=== PATIENT | male | born 1975 | race Caucasian/White ===

== ENCOUNTER 2016-12-28 14:25 | Emergency (ER) | payer OTHER ==
--- NOTE | 2016-12-28 16:42 | ED NURSING NOTES ---
Clinical Report - Nurses [facility] [address] [place] [address] 12/28/2016 14:30 [id number] Triage time 14:37 Dec 28 2016. Acuity: LEVEL 4. Chief Complaint: INJURY TO LEFT KNEE. LENA COMA SCORE: [place] Coma Scale: 15- eyes open spontaneously (4); best verbal response- oriented x 4 (5); best motor response- obeys commands (6). --14:41 Jeimy Harley R.N. 14:37 12/28/16. BP: 131/79. HR: 66. RR: 18. O2 saturation: 93%. Temp: 98.4 F. Pain level now 11/27. --14:41 Jeimy Harley R.N. Weight: 147.4 kg stated. Height/Length: 79 inches Per Patient. BMI: 36.6. --14:39 Jeimy Harley R.N. Medications Cymbalta Oral. --14:41 Jeimy Harley R.N. Allergies Penicillin. --14:41 Jeimy Harley R.N. History Arrived by private vehicle. Historian: patient. Accompanied by friend. This occurred (1 weeks ago). Occurred at home. ( Was loading unloading a truck stepped down and his knee gave out patient states felt a tear.). He has had numbness, trouble walking and weakness. No tingling, neck pain or back pain. PAST MEDICAL HX: Immunizations: up-to-date. SOCIAL HX: Current every day light tobacco smoker (cigarette)- less than 1/2 a pack per day. No alcohol use or drug use. SELF HARM ASSESSMENT: A self harm assessment was performed. The patient answered "no" to the question "Have you recently felt down, depressed, or hopeless?" and "Do you have thoughts of harming or killing yourself?". FALL RISK ASSESSMENT: Fall risk assessment completed. No fall risk identified. NUTRITIONAL RISK ASSESSMENT: The nutritional risk assessment revealed no deficiencies. FUNCTIONAL ASSESSMENT: Functional assessment: no impairments noted. LEARNING NEEDS ASSESSMENT: The learning needs assessment revealed no barriers. ABUSE ASSESSMENT: Abuse assessment: (yes) The patient was asked "Do you feel safe in your home?". SKIN INTEGRITY ASSESSMENT: Skin integrity risk assessment completed. No skin integrity risk identified. --14:41 Jeimy Harley R.N. PROBLEMS: no known problems. ADDITIONAL SURGERIES: Left ankle surgery . Left knee surgery. --14:42 Jeimy Harley R.N. PHYSICAL ASSESSMENT Ambulatory to room. GENERAL / NEURO / PSYCH: Oriented X 4. Appears in pain. EXTREMITIES: Limited ROM present. Capillary refill is less than 2 seconds in the extremities. Extremity pulses are within normal limits. Pain with weight bearing. Limping gait. Neuro-vascular status intact to the extremity. Left knee: tenderness and swelling. SKIN: Skin intact. Skin is warm and dry. --14:43 Jeimy Harley R.N. NURSING PROGRESS NOTES The initial plan of care for this patient includes an assessment with efforts to address patient positioning, appropriate ambient lighting and comfortable environmental temperature; impairment of the musculoskeletal system. Cold pack applied. Extremity elevated. Patient gowned. Reassurance given. Call light placed in reach. Side rails up x 1. Bed placed in lowest position. Brakes of bed on. --14:43 Jeimy Harley R.N. DISPOSITION / DISCHARGE Departure time: 17:00 Dec 28 2016. Condition at departure: unchanged. No learning barriers present. Discharge instructions provided and reviewed with the patient. Reviewed warnings. Reviewed medication(s). Treatments reviewed. Reviewed referrals. Patient verbalized understanding. Written instructions provided in Telugu. The patient was discharged home and accompanied by charge out clerk. He left the Emergency Department ambulatory and via private vehicle. Drafter Civil driving. --17:06 Jeimy Harley R.N. 17:05 12/28/16. BP: 132/78. HR: 88. RR: 18. O2 saturation: 98%. Temp: 98.4 F. Pain level now 12/28. --17:06 Jeimy Harley R.N. Locked/Released at 12/28/2016 17:06 by Jeimy Harley R.N.
--- NOTE | 2016-12-28 16:42 | ED CLINICAL REPORT ---
Clinical Report - Physicians/Mid Levels [facility] [address] [place] [place] [address] 12/28/2016 14:30 Patient: YOLANDE MCGILL Time Seen: 14:47; upon arrival, initial patient contact, initial documentation, patient care assumed. Arrived- By private vehicle. Historian- patient. HISTORY OF PRESENT ILLNESS Chief Complaint: Injury to left knee. The injury happened about 1 weeks ago. Occurred at home. ( step down and felt knee give, instant pain). Patient is experiencing moderate pain. Patient denies injury to the head or neck. No other injury. REVIEW OF SYSTEMS The patient complains of pain on weight bearing. He has had swelling,, weakness, and numbness. No tingling or skin laceration. All systems otherwise negative, except as recorded above. PAST HISTORY See nurses notes. ( PROBLEMS: no known problems. ADDITIONAL SURGERIES: Left ankle surgery . Left knee surgery. --14:42 Jeimy Harley R.N.). He has had a prior injury to the same area. SOCIAL HISTORY Light tobacco smoker. No alcohol use or drug use. No recent travel. Is a local resident. FAMILY HISTORY No significant family medical history. ADDITIONAL NOTES The nursing notes have been reviewed with agreement regarding the chief complaint, HPI, ROS, PMH and patient medications and allergies. PHYSICAL EXAM Vital Signs: 12/28/2016 14:37 BP: 131/79. HR: 66. RR: 18. O2 saturation: 93%. Temp: 98.4 F. Have been reviewed as normal and appear to be correct. Appearance: Alert. Oriented X3. No acute distress. Head: Head atraumatic. Eyes: Pupils equal, round and reactive to light. Eyes normal inspection. Respiratory: No respiratory distress. Skin: Skin intact. Skin warm and dry. Normal skin color. Normal skin turgor. Extremities: Left knee: moderate tenderness and swelling located in the patella, suprapatellar area and infrapatellar area. Limited ROM secondary to pain (diminished flexion and external and internal rotation). Neurovascular intact distally. No ligamentous laxity present. No joint effusion. No erythema, laceration, abrasion, ecchymosis or puncture wound. No foreign body or deformity. Lower extremity exam otherwise negative. Extremities otherwise negative. Gait: Abnormal gait. Gait not tested due to pain. Neuro, Vascular and Tendons: Vascular status intact. Sensation intact. Motor intact. Tendon function intact. Neuro: Oriented X 3. No motor deficit. No sensory deficit. Note: isolated injury to knee. LABS, X-RAYS, AND EKG X-Rays: X-rays are normal and reveal no acute disease (reviewed by dr hubbard). Left knee negative. The X-rays were independently viewed by me. Lt Knee X-ray: (IMPRESSION: 1. Nonspecific joint effusions suggests acute internal derangement or chronic reactive effusion. 2. Linear periarticular calcifications may be dystrophic, postsurgical (given history), or acute avulsion fractures, specifically of the medial patellar cortex. 3. Consider follow-up MRI. Electronically Final signed by:Haritha Cartwright MD 12/28/2016 5:30:33 PM). The X-rays were discussed with the radiologist. Interpretation time: 17:27. PROGRESS AND PROCEDURES Patient counseled in person regarding the patient's stable condition, test results and diagnosis. Differential Diagnosis: I considered fracture, stress fracture, bone contusion, sprain, hyperextension, dislocation, meniscus tear, anterior cruciate ligament tear, ligament tear, soft tissue injury, soft tissue hematoma, myositis, fasciitis, tendonitis and bursitis as a possible cause of lower extremity pain in this patient. This is a partial list of diagnoses considered. Above considerations are based on history, physical exam, reassessment and X-Ray data. Differential diagnosis was discussed with patient. Disposition: Discharged home in good and improved condition (16:42). Condition: good and stable. CLINICAL IMPRESSION Left knee effusion. No left knee contusion or hemarthrosis. INSTRUCTIONS Wear elastic wrap (Adi wrap) as directed for one weeks until released. Warnings: GENERAL WARNINGS: Return or contact your physician immediately if your condition worsens or changes unexpectedly, if not improving as expected, or if other problems arise. Specifically return if problem worsens. Prescription Medications: Ultram 50 mg tablets: take 1-2 orally every 6 hours as needed for pain. Dispense twenty (20). No refills. Substitution is permissible. Follow-up: Follow up with an orthopedic surgeon in about one week as needed. Call for an appointment. Summary of care provided to patient. Understanding of the discharge instructions verbalized by patient. (Electronically signed by Antoinette Page A.R.N.P. 12/28/2016 17:48)
--- NOTE | 2016-12-28 16:42 | ED NURSING NOTES ---
Clinical Report - Nurses [facility] [address] [place] [address] 12/28/2016 14:30 [id number] Triage time 14:37 Dec 28 2016. Acuity: LEVEL 4. Chief Complaint: INJURY TO LEFT KNEE. LENA COMA SCORE: [place] Coma Scale: 15- eyes open spontaneously (4); best verbal response- oriented x 4 (5); best motor response- obeys commands (6). --14:41 Jeimy Harley R.N. 14:37 12/28/16. BP: 131/79. HR: 66. RR: 18. O2 saturation: 93%. Temp: 98.4 F. Pain level now 11/27. --14:41 Jeimy Harley R.N. Weight: 147.4 kg stated. Height/Length: 79 inches Per Patient. BMI: 36.6. --14:39 Jeimy Harley R.N. Medications Cymbalta Oral. --14:41 Jeimy Harley R.N. Allergies Penicillin. --14:41 Jeimy Harley R.N. History Arrived by private vehicle. Historian: patient. Accompanied by friend. This occurred (1 weeks ago). Occurred at home. ( Was loading unloading a truck stepped down and his knee gave out patient states felt a tear.). He has had numbness, trouble walking and weakness. No tingling, neck pain or back pain. PAST MEDICAL HX: Immunizations: up-to-date. SOCIAL HX: Current every day light tobacco smoker (cigarette)- less than 1/2 a pack per day. No alcohol use or drug use. SELF HARM ASSESSMENT: A self harm assessment was performed. The patient answered "no" to the question "Have you recently felt down, depressed, or hopeless?" and "Do you have thoughts of harming or killing yourself?". FALL RISK ASSESSMENT: Fall risk assessment completed. No fall risk identified. NUTRITIONAL RISK ASSESSMENT: The nutritional risk assessment revealed no deficiencies. FUNCTIONAL ASSESSMENT: Functional assessment: no impairments noted. LEARNING NEEDS ASSESSMENT: The learning needs assessment revealed no barriers. ABUSE ASSESSMENT: Abuse assessment: (yes) The patient was asked "Do you feel safe in your home?". SKIN INTEGRITY ASSESSMENT: Skin integrity risk assessment completed. No skin integrity risk identified. --14:41 Jeimy Harley R.N. PROBLEMS: no known problems. ADDITIONAL SURGERIES: Left ankle surgery . Left knee surgery. --14:42 Jeimy Harley R.N. PHYSICAL ASSESSMENT Ambulatory to room. GENERAL / NEURO / PSYCH: Oriented X 4. Appears in pain. EXTREMITIES: Limited ROM present. Capillary refill is less than 2 seconds in the extremities. Extremity pulses are within normal limits. Pain with weight bearing. Limping gait. Neuro-vascular status intact to the extremity. Left knee: tenderness and swelling. SKIN: Skin intact. Skin is warm and dry. --14:43 Jeimy Harley R.N. NURSING PROGRESS NOTES The initial plan of care for this patient includes an assessment with efforts to address patient positioning, appropriate ambient lighting and comfortable environmental temperature; impairment of the musculoskeletal system. Cold pack applied. Extremity elevated. Patient gowned. Reassurance given. Call light placed in reach. Side rails up x 1. Bed placed in lowest position. Brakes of bed on. --14:43 Jeimy Harley R.N. DISPOSITION / DISCHARGE Departure time: 17:00 Dec 28 2016. Condition at departure: unchanged. No learning barriers present. Discharge instructions provided and reviewed with the patient. Reviewed warnings. Reviewed medication(s). Treatments reviewed. Reviewed referrals. Patient verbalized understanding. Written instructions provided in Chinese. The patient was discharged home and accompanied by fast food manager. He left the Emergency Department ambulatory and via private vehicle. Bricklayer Supervisor driving. --17:06 Jeimy Harley R.N. 17:05 12/28/16. BP: 132/78. HR: 88. RR: 18. O2 saturation: 98%. Temp: 98.4 F. Pain level now 12/28. --17:06 Jeimy Harley R.N. Locked/Released at 12/28/2016 17:06 by Jeimy Harley R.N.
--- NOTE | 2016-12-28 16:42 | ED ORDER SUMMARY ---
..... Patient: YOLANDE MCGILL OrderSheet [facility] VisitID: [id number] [address] [place] [address] 41y, M Registration Date/Time: 12/28/2016 ORDER SHEET Weight: 147.4 kg (stated) Allergies: Penicillin GENERAL ORDERS: Knee 4V Left Urgent (15:01 12/28/2016 HBivens A.R.N.P.) (15:14 TBermilena) Adi Wrap (16:41 12/28/2016 HBivens A.R.N.P.) (16:59 Kalia R.N.) MEDICATION ORDERS: IV FLUIDS: ORDER SHEET NOTES: [Electronically signed by Jeimy Harley R.N. (17:06 12/28/2016)] [Electronically signed by Antoinette Page.R.N.PAsa (17:48 12/28/2016)] [Electronically locked/signed by Jeimy Harley R.N. (17:06 12/28/2016)]
--- NOTE | 2016-12-28 16:42 | ED ORDER SUMMARY ---
..... Patient: YOLANDE MCGILL OrderSheet [facility] VisitID: [id number] [address] [place] [address] 41y, M Registration Date/Time: 12/28/2016 ORDER SHEET Weight: 147.4 kg (stated) Allergies: Penicillin GENERAL ORDERS: Knee 4V Left Urgent (15:01 12/28/2016 HBivens A.R.N.P.) (15:14 TBermilena) Adi Wrap (16:41 12/28/2016 HBivens A.R.N.P.) (16:59 Kalia R.N.) MEDICATION ORDERS: IV FLUIDS: ORDER SHEET NOTES: [Electronically signed by Jeimy Harley R.N. (17:06 12/28/2016)] [Electronically signed by Antoinette Page.R.N.PAsa (17:48 12/28/2016)] [Electronically locked/signed by Jeimy Harley R.N. (17:06 12/28/2016)]
--- NOTE | 2016-12-28 17:30 | DIAGNOSTIC IMAGING REPORT ---
PROCEDURE: XR KNEE 4 VIEWS - LEFT INDICATION: TRAUMA/INJURY TECHNIQUE: Four views of the left knee. COMPARISON: None. FINDINGS: Normal mineralization. Normal bony alignment. Small to moderate suprapatellar joint effusion. There are a few faint curvilinear/linear calcifications, one measuring 12 ml in length projecting near the patellofemoral joint on the lateral view and medial to the patella on the internally rotated view. There are mild marginal spurs along the medial and lateral tibial plateaus. IMPRESSION: 1. Nonspecific joint effusions suggests acute internal derangement or chronic reactive effusion. 2. Linear periarticular calcifications may be dystrophic, postsurgical (given history), or acute avulsion fractures, specifically of the medial patellar cortex. 3. Consider follow-up MRI.
--- NOTE | 2016-12-28 17:48 | ED MED RECONCILIATION SUMMARY ---
Patient: YOLANDE MCGILL Medication Reconciliation Report [facility] VisitID: [id number] [address] [place] [address] 41y, M Registration Date/Time: 12/28/2016 Weight: 147.4 kg Height/Length: 79 in. BMI: 36.6 ALLERGIES: Penicillin The patient's Home Medications are listed below: THE FOLLOWING MEDICATIONS NEED TO BE RECONCILED: Cymbalta Oral The source(s) of the original Home Medication information: Not obtained. The following Medications were given to the patient in the Emergency Department: None. The following Medications were prescribed to the patient: Ultram 50 mg tablets: take 1-2 orally every 6 hours as needed for pain. Dispense twenty (20). No refills. Substitution is permissible. -- Antoinette Page A.R.N.P.
--- NOTE | 2016-12-28 17:48 | ED MED RECONCILIATION SUMMARY ---
Patient: YOLANDE MCGILL Medication Reconciliation Report [facility] VisitID: [id number] [address] [place] [address] 41y, M Registration Date/Time: 12/28/2016 Weight: 147.4 kg Height/Length: 79 in. BMI: 36.6 ALLERGIES: Penicillin The patient's Home Medications are listed below: THE FOLLOWING MEDICATIONS NEED TO BE RECONCILED: Cymbalta Oral The source(s) of the original Home Medication information: Not obtained. The following Medications were given to the patient in the Emergency Department: None. The following Medications were prescribed to the patient: Ultram 50 mg tablets: take 1-2 orally every 6 hours as needed for pain. Dispense twenty (20). No refills. Substitution is permissible. -- Antoinette Page A.R.N.P.
--- NOTE | 2016-12-28 17:48 | ED MAR SUMMARY ---
..... Medication Administration Record [facility] [address], [place] [id number] Patient: YOLANDE MCGILL Visit ID: [id number] 41y, M Weight: 147.4 kg Height/Length: 79 in BMI: 36.6 ALLERGIES: Penicillin
--- NOTE | 2016-12-28 17:48 | ED DISCHARGE INSTRUCTIONS ---
Patient: YOLANDE MCGILL General Instructions [facility] VisitID: [id number] [place] [address] 41y, M Registration Date/Time: 12/28/2016 Left knee effusion. No left knee contusion or hemarthrosis. INSTRUCTIONS Wear elastic wrap (Adi wrap) as directed for one weeks until released. Warnings: GENERAL WARNINGS: Return or contact your physician immediately if your condition worsens or changes unexpectedly, if not improving as expected, or if other problems arise. Specifically return if problem worsens. Prescription Medications: Ultram 50 mg tablets: take 1-2 orally every 6 hours as needed for pain. Dispense twenty (20). No refills. Substitution is permissible. Follow-up: Follow up with an orthopedic surgeon in about one week as needed. Call for an appointment. Summary of care provided to patient. Understanding of the discharge instructions verbalized by patient. ADDITIONAL INFORMATION Knee Pain, Possible Torn Meniscus Themeniscusis a tough cartilage pad that cushions the inside of the knee joint. It serves as a shock absorber and spreads the weight of your body evenly across the knee joint. This prevents excess wear and tear to the bones of that joint. The most common causes of meniscal tears are due to injury (especially related to sports) and degenerative disease (as occurs with aging). A meniscus tear commonly occurs during a twisting injury when the knee is bent. This causes pain, swelling, reduced movement of the knee and difficulty walking. There may be popping, clicking, joint locking or inability to completely straighten the knee. Ligaments of the knee may also be injured. Initial diagnosis of a torn meniscus is by physical exam and x-rays. In the case of an acute injury, the knee may be too painful to examine fully. A more accurate exam can be performed after the initial swelling goes down. An MRI (magnetic image scan) may be ordered to make a final diagnosis. Initial treatment of a suspected meniscal injury is with ice and rest and preventing movement of the knee. A splint or Velcro knee immobilizer may be applied to protect the joint. Depending on the severity of the injury, surgery may be required. A cartilage injury may take 4-12 weeks to heal depending on the severity. Home Care: Stay off the injured leg as much as possible until you can walk on it without pain. If you have a lot of pain with walking, crutches or a walker may be prescribed. (These can be rented or purchased at many pharmacies and surgical or orthopedic supply stores). Follow your doctor's advice regarding when to begin bearing weight on that leg. Keep your leg elevated to reduce pain and swelling. When sleeping, place a pillow under the injured leg. When sitting, support the injured leg so it is level with your waist. This is very important during the first 48 hours. Apply an ice pack (ice cubes in a plastic bag, wrapped in a towel) over the injured area for 20 minutes every 1-2 hours the first day. You can place the ice pack directly over the splint. If a Velcro knee immobilizer was applied, you can open this to apply the ice pack directly to the knee. Continue with ice packs 3-4 times a day for the next two days, then as needed for the relief of pain and swelling. You may use acetaminophen (Tylenol) or ibuprofen (Motrin, Advil) to control pain, unless another pain medicine was prescribed. [NOTE: If you have chronic liver or kidney disease or ever had a stomach ulcer, talk with your doctor before using these medicines.] If you were given a splint, keep it completely dry at all times. Bathe with your splint out of the water, protected with a large plastic bag, rubber-banded at the top end. If a fiberglass splint gets wet, you can dry it with a hair-dryer. If you have a Velcro knee immobilizer, you can remove this to bathe, unless told otherwise. Check with your doctor before returning to sports or full work duties. Follow Up with your doctor, or as advised, within 1-2 weeks for another exam. Further testing may be required to assess the extent of your injury. [NOTE: If X-rays were taken, they will be reviewed by a radiologist. You will be notified of any new findings that may affect your care.] Get Prompt Medical Attention if any of the following occur: Toes or foot becomes swollen, cold, blue, numb or tingly Pain or swelling increases over the knee or calf Warmth or redness appears over the knee or calf Shortness of breath or chest pain Fever over 100.4F (38.0C) Knee Effusion A knee effusion is sometimes calledwater on the knee. The knee joint normally contains less than one ounce of lubricating fluid. Injury or inflammation of the knee joint causes extra fluid to collect there. When this occurs, the knee joint looks swollen and is usually painful. There may be difficulty in fully bending the knee. The most common cause of knee effusion is osteoarthritis due to wear and tear on the joint cartilage. Other causes include injury to the cartilage, inflammatory arthritis (such as gout or rheumatoid arthritis), and infection of the joint. If the cause of your knee effusion is not certain, a needle aspiration may be performed. This procedure removes a sample of joint fluid from the knee for testing. This is done with a local anesthetic. Removing excess fluid may also relieve swelling and pain. Home Care: Limit your activities. Avoid weight-bearing activities as much as possible when your knee is painful and swollen. Keep your leg elevated to reduce pain and swelling. When sleeping, place a pillow under the injured leg. When sitting, support the injured leg so it is level with your waist. This is very important during the first 48 hours. Apply an ice pack (ice cubes in a plastic bag, wrapped in a towel) over the injured area for 20 minutes every 1-2 hours the first day. Continue with ice packs 3-4 times a day for the next two days, then as needed for the relief of pain and swelling. You may use acetaminophen (Tylenol) or ibuprofen (Motrin, Advil) to control pain, unless another pain medicine was prescribed. [NOTE: If you have chronic liver or kidney disease or have ever had a stomach ulcer, talk with your doctor before using these medicines.] Ifcrutches or a walker have been recommended, do not bear full weight on the injured leg until you can do so without pain. Check with your doctor before returning to sports or full work duties. If you were given a Velcro knee brace: You may open the splint to apply ice. You may remove the splint to bathe and sleep, unless told otherwise. Follow Up with your doctor or as advised by our staff. If you are overweight, talk to your doctor about a weight loss program. The excess weight puts extra strain on your knees. Return Promptly or contact your doctor if any of the following occur: Increasing pain, redness or swelling of the knee Fever of 100.4F (38C) or higher, or as directed by your healthcare provider Sprain, Knee A sprain is an injury to the ligaments or capsule that holds a joint together. There are no broken bones. Most sprains take three to six weeks to heal. If the ligament is completely torn (severe sprain), it can take months to recover from. Most knee sprains are treated with a splint, knee immobilizer or elastic wrap for support. Severe sprains may require surgery. Home care The following guidelines will help you care for your injury at home: Stay off the injured leg as much as possible until you can walk on it without pain. If you have a lot of pain with walking, crutches or a walker may be prescribed. (These can be rented or purchased at many pharmacies and surgical or orthopedic supply stores). Follow your doctor's advice regarding when to begin bearing weight on that leg. Keep your leg elevated to reduce pain and swelling. When sleeping, place a pillow under the injured leg. When sitting, support the injured leg so it is level with your waist. This is very important during the first 48 hours. Apply an ice pack (ice cubes in a plastic bag, wrapped in a towel) over the injured area for 20 minutes every 12 hours the first day. You can place the ice pack directly over the splint. If a Velcro knee immobilizer was applied, you can open this to apply the ice pack directly to the knee. Continue with ice packs 34 times a day for the next two days, then as needed for the relief of pain and swelling. You may use acetaminophen or ibuprofen to control pain, unless another pain medicine was prescribed. If you have chronic liver or kidney disease or ever had a stomach ulcer or GI bleeding, talk with your doctor before using these medicines. If you were given a splint, keep it completely dry at all times. Bathe with your splint out of the water, protected with a large plastic bag, rubber-banded at the top end. If a fiberglass splint gets wet, you can dry it with a hair-dryer. If you have a Velcro knee immobilizer, you can remove this to bathe, unless told otherwise. Follow-up care Follow up with your doctor as advised. Any X-rays you had today dont show any broken bones, breaks, or fractures. Sometimes fractures dont show up on the first X-ray. Bruises and sprains can sometimes hurt as much as a fracture. These injuries can take time to heal completely. If your symptoms dont improve or they get worse, talk with your doctor. You may need a repeat X-ray. When to seek medical care Get prompt medical attention if any of the following occur: The plaster cast or splint becomes wet or soft The fiberglass cast or splint remains wet for more than 24 hours Pain or swelling increases Toes become cold, blue, numb or tingly Adi Wrap An "Adi Bandage" refers to any elastic bandage wrap (2-6" wide). This is used to apply support and compression to an arm or leg. It will help prevent or reduce swelling also. When applying the bandage, it should not be stretched too tightly. A tight Adi Wrap will reduce circulation and cause tingling or numbness in the hand or foot. It may increase the pain under the bandage. If you get these symptoms, remove the wrap and rest the limb. Symptoms should go away within 1-2 hours. Once symptoms go away, reapply the bandage with less stretch. If symptoms do not go away after 1-2 hours with the bandage off, call your doctor or return to this facility promptly. Tramadol Hydrochloride Oral tablet What is this medicine? TRAMADOL (TRA ma dole) is a pain reliever. It is used to treat moderate to severe pain in adults. How should I use this medicine? Take this medicine by mouth with a full glass of water. Follow the directions on the prescription label. If the medicine upsets your stomach, take it with food or milk. Do not take more medicine than you are told to take. Talk to your photoengraving proofer regarding the use of this medicine in children. Special care may be needed. What side effects may I notice from receiving this medicine? Side effects that you should report to your doctor or health transitional care manager as soon as possible: allergic reactions like skin rash, itching or hives, swelling of the face, lips, or tongue breathing difficulties, wheezing confusion itching light headedness or fainting spells redness, blistering, peeling or loosening of the skin, including inside the mouth seizures Side effects that usually do not require medical attention (report to your doctor or health transitional care manager if they continue or are bothersome): constipation dizziness drowsiness headache nausea, vomiting What may interact with this medicine? Do not take this medicine with any of the following medications: MAOIs like Carbex, Eldepryl, Marplan, Nardil, and Parnate This medicine may also interact with the following medications: alcohol or medicines that contain alcohol antihistamines benzodiazepines bupropion carbamazepine or oxcarbazepine clozapine cyclobenzaprine digoxin furazolidone linezolid medicines for depression, anxiety, or psychotic disturbances medicines for migraine headache like almotriptan, eletriptan, frovatriptan, naratriptan, rizatriptan, sumatriptan, zolmitriptan medicines for pain like pentazocine, buprenorphine, butorphanol, meperidine, nalbuphine, and propoxyphene medicines for sleep muscle relaxants naltrexone phenobarbital phenothiazines like perphenazine, thioridazine, chlorpromazine, mesoridazine, fluphenazine, prochlorperazine, promazine, and trifluoperazine procarbazine warfarin What if I miss a dose? If you miss a dose, take it as soon as you can. If it is almost time for your next dose, take only that dose. Do not take double or extra doses. Where should I keep my medicine? Keep out of the reach of children. Store at room temperature between 15 and 30 degrees C (59 and 86 degrees F). Keep container tightly closed. Throw away any unused medicine after the expiration date. What should I tell my health care provider before I take this medicine? They need to know if you have any of these conditions: brain tumor depression drug abuse or addiction head injury if you frequently drink alcohol containing drinks kidney disease or trouble passing urine liver disease lung disease, asthma, or breathing problems seizures or epilepsy suicidal thoughts, plans, or attempt; a previous suicide attempt by you or a family member an unusual or allergic reaction to tramadol, codeine, other medicines, foods, dyes, or preservatives or trying to get breast-feeding What should I watch for while using this medicine? Tell your doctor or health transitional care manager if your pain does not go away, if it gets worse, or if you have new or a different type of pain. You may develop tolerance to the medicine. Tolerance means that you will need a higher dose of the medicine for pain relief. Tolerance is normal and is expected if you take this medicine for a long time. Do not suddenly stop taking your medicine because you may develop a severe reaction. Your body becomes used to the medicine. This does NOT mean you are addicted. Addiction is a behavior related to getting and using a drug for a non-medical reason. If you have pain, you have a medical reason to take pain medicine. Your doctor will tell you how much medicine to take. If your doctor wants you to stop the medicine, the dose will be slowly lowered over time to avoid any side effects. You may get drowsy or dizzy. Do not drive, use machinery, or do anything that needs mental alertness until you know how this medicine affects you. Do not stand or sit up quickly, especially if you are an older patient. This reduces the risk of dizzy or fainting spells. Alcohol can increase or decrease the effects of this medicine. Avoid alcoholic drinks. You may have constipation. Try to have a bowel movement at least every 2 to 3 days. If you do not have a bowel movement for 3 days, call your doctor or health transitional care manager. Your mouth may get dry. Chewing sugarless gum or sucking hard candy, and drinking plenty of water may help. Contact your doctor if the problem does not go away or is severe. You have been given the following additional information: Knee Pain, Meniscus Injury (Possible) Knee Effusion Knee Sprain Adi Wrap Tramadol Hydrochloride Oral tablet (Electronically signed by Antoinette Page A.R.N.P. 12/28/2016 17:48)
--- NOTE | 2016-12-28 17:48 | ED MAR SUMMARY ---
..... Medication Administration Record [facility] [address], [place] [id number] Patient: YOLANDE MCGILL Visit ID: [id number] 41y, M Weight: 147.4 kg Height/Length: 79 in BMI: 36.6 ALLERGIES: Penicillin
== END 2016-12-28 17:00 | disposition home or self-care (01) ==
LOC: ED SRH 14:25
DX: M25.462 Effusion, left knee (principal); W22.8XXA Striking against or struck by other objects, initial encounter; Y93.89 Activity, other specified; Y92.019 Unspecified place in single-family (private) house as the place of occurrence of the external cause; Y99.8 Other external cause status; Z79.899 Other long term (current) drug therapy; F17.210 Nicotine dependence, cigarettes, uncomplicated; Z88.0 Allergy status to penicillin